=== PATIENT | male | born 1965 | race Asian ===

== ENCOUNTER 2022-09-12 19:30 | Emergency (ER) | payer OTHER ==
[~2022-09-12] VITALS: Ht 167.6 cm; Wt 66.0 kg
[2022-09-12] MEDS ORDERED: AMPICILLIN SOD/SULBACTAM NA 1.5 G in SODIUM CHLORIDE 0.9% 50 ML IV STA (20:50)
[2022-09-12] MEDS ORDERED: BACITRACIN ZINC OINT UDPKT TOP ONE (21:00)
[2022-09-12] MEDS ORDERED: TETANUS, DIPHTHERIA, PERTUSSIS VAC/PF 0.5ML (>10YR OLD) IM ONE (21:00)
[2022-09-12] MEDS ORDERED: LIDOCAINE HCL/EPINEPHRINE 1%-EPI 1:100,000 20 ML VIAL INFIL ONE (21:00)
[2022-09-12] MEDS ORDERED: LIDOCAINE HCL/PF 1% 10 MG/ML 5ML VIAL INFIL ONE (22:30)
[2022-09-12] MEDS ORDERED: AMOX1TAB16 MT (22:55)
[2022-09-12] MEDS ORDERED: HYDR-4001 MT (22:55)
[2022-09-12 23:20] VITALS: BP 112/78
== END 2022-09-12 23:20 | disposition home or self-care (01) ==
LOC: ER 19:30
DX: S51.051A Open bite, right elbow, initial encounter (principal); W54.0XXA Bitten by dog, initial encounter; Y93.89 Activity, other specified; Y92.89 Other specified places as the place of occurrence of the external cause; Y99.0 Civilian activity done for income or pay
CPT/HCPCS: 12002; 73070; 90471; 90715; 96365; 99284; J0295; J3490